=== PATIENT | female | born 1990 | race Caucasian/White ===

== ENCOUNTER 2021-04-09 16:19 | Outpatient (REF) | payer OTHER, SELFPAY ==
--- NOTE | ~2021-04-09 | XR_ITS ---
EXAMINATION: XR CHEST 2 VIEWS CLINICAL INFORMATION: Covid-19 infection; shortness of breath. COMPARISON: None. TECHNIQUE: Frontal and lateral views of the chest were obtained. FINDINGS: The heart, great vessels, pulmonary vasculature and mediastinum are normal. The lungs show no focal infiltrate, effusion or pneumothorax. There is mild elevation of the right hemidiaphragm. There is no acute osseous abnormality. XR/XR chest 2V IMPRESSION: No active cardiopulmonary disease.
== END 2021-04-09 16:20 | disposition home or self-care (01) ==
LOC: HO.HMGCX 16:19
PROVIDERS: Visit Provider Physician Assistant Medical
DX: U07.1 COVID-19 (principal); R06.02 Shortness of breath
CPT/HCPCS: 71046

== ENCOUNTER 2021-12-14 16:09 | Emergency (ER) | payer OTHER, SELFPAY ==
--- NOTE | ~2021-12-14 | XR_ITS ---
EXAMINATION: XR CHEST CLINICAL INFORMATION: Cough COMPARISON: Chest x-ray 04/09/2021 TECHNIQUE: Frontal view of the chest was obtained. FINDINGS: The lungs are clear. No airspace consolidation, pleural effusion, or pneumothorax. The cardiomediastinal silhouette is within normal limits. No acute osseous injury. XR/XR chest 1V IMPRESSION: No acute pulmonary process.
--- NOTE | 2021-12-14 16:10 | ECG_ITS ---
Test Reason : chest pain Blood Pressure : / mmHG Vent. Rate : 113 BPM Atrial Rate : 113 BPM P-R Int : 172 ms QRS Dur : 094 ms QT Int : 348 ms P-R-T Axes : 031 101 030 degrees QTc Int : 477 ms Sinus tachycardia Possible Left atrial enlargement Rightward axis Borderline ECG No previous ECGs available Referred By: Generic ED Physician Electronically Signed By:MARIEL HARO
[2021-12-14 16:16] VITALS: BP 142/61; PULSE 114; RESP 18; TEMP 37.2; O2SAT 98; BMI 51.3
[2021-12-14 16:32] LABS: MANUAL DIFF FLAG NO
[2021-12-14 16:39] LABS: Basophils Absolute Auto 0.1 X10*3/uL (0.0-0.2); Basophils Percent Auto 0.8 % (0-2); Eosinophils Absolute Auto 0.2 X10*3/uL (0.0-0.4); Eosinophils Percent Auto 1.4 % (0-4); Hematocrit 42.7 % (37.0-47.0); Hemoglobin 14.1 g/dl (12.0-16.0); Imm Gran Abs Auto 0.12 X10*3/uL (0.00-0.03); Lymphocytes Absolute Auto 2.6 X10*3/uL (1.2-4.9); Lymphocytes Percent Auto 21.7 % (20-40); Mean Corpuscular Hemoglobin 27.7 pg (27.0-33.0); Mean Corpuscular Volume 83.9 fL (80.0-98.0); Mean Platelet Volume 9.2 fL (9.4-12.3); Monocytes Absolute Auto 0.6 X10*3/uL (0.1-1.2); Monocytes Percent Auto 4.8 % (2-11); Neutrophils Absolute Auto 8.5 x10*3/uL (2.0-8.3); Neutrophils Percent Auto 70.3 % (45-73); Platelet Count 325 X10*3/uL (160-400); Red Blood Count 5.09 X10*6/uL (4.20-5.50); Red Cell Distribution Width 12.8 % (11.0-16.0); White Blood Count 12.1 X10*3/uL (4.8-10.8)
[2021-12-14 16:51] LABS: Alanine Aminotransferase 29 U/L (0-31); Albumin Level 4.7 g/dL (3.5-5.0); Alkaline Phosphatase 83 U/L (39-117); Anion Gap 16 (12-20); Aspartate Amino Transferase 23 U/L (5-31); Bilirubin Total 0.4 mg/dL (0.0-1.0); Blood Urea Nitrogen 8 mg/dL (9-16); Calcium 9.4 mg/dL (8.4-10.2); Carbon Dioxide 24 mmol/L (22-29); Chloride 103 mmol/L (96-108); Creatinine Clr Calc Pharmacy 165.8; Estimated Glomerular Filt Rate > 60; Glucose Random 181 mg/dL (60-115); Sodium 139 mmol/L (135-145); Total Protein 7.7 g/dL (6.5-8.0)
[2021-12-14 16:53] LABS: Troponin-I High Sensitivity < 3.5 ng/L (<3.5-17.0)
--- NOTE | 2021-12-14 19:05 | ED.CHESTPAIN ---
HPI - Chest Pain General Chief Complaint: Chest Pain Stated Complaint: chest pain Time Seen by Provider: 12/14/21 18:36 Source: patient and family History of Present Illness HPI narrative: patient describes chest pain for the last 4 days or so. Started with a cough which got better with Claritin. She denies any active ongoing cough. She describes the discomfort as a pressure-like sensation across her anterior chest. She has had this in the past and has been worked up extensively for tachycardia syndrome with so far her workup being negative. This includes a stress test, multiple EKGs, blood work, and apparently thyroid testing but not the full panel. She states her heart rate is typically in the low 1 teens. She has a home sat monitor and says her lowest heart rate tends to be around 90. She feels a beating and feels palpitations when it is over 100 in 10. She has been feeling this for the past 4 days. No history of thromboembolic disease in the patient or her family. No report increased thromboembolic risk factors such as OCPs, smoking, recent travel. Related Data Previous Rx's Medication Instructions Recorded cyclobenzaprine 10 mg tablet 10 mg PO TID PRN muscle spasm #14 04/09/21 tabs hydrocortisone acetate 30 mg 30 mg MD BID #12 ea 04/09/21 rectal suppository Allergies Allergy/AdvReac Type Severity Reaction Status Date / Time guaifenesin [From Mucinex] Allergy Mild hives Verified 04/09/21 13:24 Review of Systems Constitutional: Comments: No fevers or chills Cardiovascular: Comments: palpitations and pain as mentioned Respiratory: Comments: some dyspnea. Cough which has resolved. No sputum Gastrointestinal: Comments: no nausea vomiting diarrhea or abdominal pain Musculoskeletal: Comments: no extremity pain Physical Exam Vital Signs: Vital Signs: Last Vital Signs Temp 98.9 F 12/14/21 16:16 Pulse 114 H 12/14/21 16:16 Resp 18 12/14/21 16:16 BP 142/61 H 12/14/21 16:16 Pulse Ox 98 12/14/21 16:16 O2 Del Method 12/14/21 16:16 BMI result Body Mass Index 51.3 Const: Other: awake alert, no acute distress Resp: Other: clear and equal bilaterally without wheezes rales or rhonchi Cardio: Other: regular rhythm without murmurs rubs or gallops. Tachycardic at slightly over 100 beats per minute Skin: Other: warm pink and dry without rash Neuro: Other: nonfocal neuro exam Course Course Course Narrative: pneumonia Myocardial infarction Benign tachycardia syndrome Musculoskeletal chest pain Workup shows normal labs including a troponin. EKG shows tachycardia but no obvious ischemia X-ray without infiltrate All of these discussed with the patient. I discussed with her potential for thromboembolic cause of symptoms as well as thyroid studies. Patient would rather have the test done and go home. She understands she will return to the emergency department if the test results are abnormal. MDM - Chest Pain Lab Data Result diagrams: 12/14/21 16:28 12/14/21 16:28 Labs: Lab Results 12/14/21 12/14/21 12/14/21 Range/Units 16:28 16:28 16:28 WBC 12.1 H (4.8-10.8) X10*3/uL RBC 5.09 (4.20-5.50) X10*6/uL Hgb 14.1 (12.0-16.0) g/dl Hct 42.7 (37.0-47.0) % MCV 83.9 (80.0-98.0) fL MCH 27.7 (27.0-33.0) pg MCHC 33.0 (31.0-35.0) g/dl RDW 12.8 (11.0-16.0) % Plt Count 325 (160-400) X10*3/uL MPV 9.2 L (9.4-12.3) fL Immature Gran % (Auto) 1.0 H (0.0-0.4) % Neut % (Auto) 70.3 (45-73) % Lymph % (Auto) 21.7 (20-40) % [place] % (Auto) 4.8 (2-11) % Eos % (Auto) 1.4 (0-4) % Baso % (Auto) 0.8 (0-2) % Lymph # (Auto) 2.6 (1.2-4.9) X10*3/uL [place] # (Auto) 0.6 (0.1-1.2) X10*3/uL Eos # (Auto) 0.2 (0.0-0.4) X10*3/uL Baso # (Auto) 0.1 (0.0-0.2) X10*3/uL Abs Immat Gran (auto) 0.12 H (0.00-0.03) X10*3/uL Absolute Neuts (auto) 8.5 H (2.0-8.3) x10*3/uL Absolute Nucleated RBC 0.000 (0.0-0.012) X10*3/uL Nucleated RBC % (auto) 0.0 (0.0-0.2) /100WBC Sodium 139 (135-145) mmol/L Potassium 4.0 (3.3-5.1) mmol/L Chloride 103 (96-108) mmol/L Carbon Dioxide 24 (22-29) mmol/L Anion Gap 16 (12-20) BUN 8 L (9-16) mg/dL Creatinine 0.64 (0.5-1.4) mg/dL Estim Creat Clear Calc 165.8 Estimated GFR > 60 Random Glucose 181 H (60-115) mg/dL Calcium 9.4 (8.4-10.2) mg/dL Total Bilirubin 0.4 (0.0-1.0) mg/dL AST 23 (5-31) U/L ALT 29 (0-31) U/L Alkaline Phosphatase 83 (39-117) U/L Troponin I High Sens < 3.5 (<3.5-17.0) ng/L Total Protein 7.7 (6.5-8.0) g/dL Albumin 4.7 (3.5-5.0) g/dL Discharge Plan Discharge Clinical Impression: Chest pain, Tachycardia Patient Disposition: Home, Self-Care Instructions: Chest Pain (DC), Tachycardia (ED) Additional Instructions: we are adding on additional lab studies including a test called D-dimer and thyroid test. If there significantly abnormal will call you. Otherwise be sure to check them on the patient portal in follow-up with your primary care physician and [employer] back feeder. Prescriptions: No Action hydrocortisone acetate 30 mg suppository 30 mg MD BID Qty: 12 0RF cyclobenzaprine 10 mg tablet 10 mg PO TID PRN (Reason: muscle spasm) Qty: 14 0RF
[2021-12-14 20:07] LABS: D Dimer High Sensitivity 229 NG/ML
[2021-12-14 20:30] LABS: T4 Thyroxine 6.4 ug/dL (4.5-12.0); Thyroid Stimulating Hormone 0.81 uIU/mL (0.32-4.0)
== END 2021-12-14 20:04 | disposition home or self-care (01) ==
PROVIDERS: Internal Medicine; Emergency Provider Emergency Medicine; PCP Nurse Practitioner Family
DX: R07.9 Chest pain, unspecified (principal); R00.0 Tachycardia, unspecified
CPT/HCPCS: 36415; 71045; 80053; 84436; 84443; 84484; 85025; 85379; 93005; 99283